=== PATIENT | male | born 1980 | race Caucasian/White ===

== ENCOUNTER 2024-07-30 20:08 | Emergency (ER) | payer OTHER ==
[~2024-07-30] VITALS: Ht 180.3 cm; Wt 74.8 kg
[~2024-07-30 20:08] MED LIST: NO MEDICATIONS
[2024-07-30 20:41] LABS: CARBON DIOXIDE 21 mmol/L (21-32); UREA NITROGEN, BLOOD 24 mg/dL (7-18)
[2024-07-30 21:07] LABS: BASOPHILS # (AUTO) 0.1 K/uL (0.0-0.2); BASOPHILS % (AUTO) 0.6 % (0.0-2.0); EOSINOPHILS # (AUTO) 0.2 K/uL (0.0-0.7); EOSINOPHILS % (AUTO) 2.3 % (0.0-6.0); HEMATOCRIT 49 % (39-51); HEMOGLOBIN 16.7 g/dL (13.5-17.5); LYMPHOCYTES # (AUTO) 3.6 K/uL (0.8-4.8); LYMPHOCYTES % (AUTO) 42.4 % (20.0-44.0); MEAN CORPUSCULAR HEMOGLOBIN 28 PG (26.0-33.0); MEAN CORPUSCULAR HGB CONC 34 g/dl (31.0-36.0); MEAN CORPUSCULAR VOLUME 83 fL (80-96); MONOCYTES # (AUTO) 0.5 K/uL (0.1-1.30); MONOCYTES % (AUTO) 6.6 % (2.0-12.0); NEUTROPHILS % (AUTO) 48.1 % (43.0-81.0); PLATELET COUNT (AUTO) 163 K/uL (150-450); RED BLOOD CELL COUNT(AUTO) 5.91 MIL/uL (4.5-6.0); RED CELL DISTRIBUTION WIDTH 13.2 % (11.5-15.0); WHITE BLOOD COUNT (AUTO) 8.4 K/uL (4.3-11.0)
[2024-07-30] MEDS: HALOPERIDOL LACTATE INJ 5 MG/ML VIAL IM ONE (21:08)
[2024-07-30] MEDS: ASPIRIN EC 325 MG TABLET.DR PO ONE (21:08)
[2024-07-30] MEDS: POTASSIUM CHLORIDE 20 MEQ TAB.PRT.SR PO ONE (21:08)
[2024-07-30 21:19] VITALS: BP 110/81; TEMP 98.5; O2SAT 99
[2024-07-30 21:21] LABS: ALCOHOL, BLOOD < 3 mg/dL (0-10)
[2024-07-30 21:30] LABS: CHLORIDE 101 mmol/L (98-107); POTASSIUM 3.5 mmol/L (3.5-5.1); SODIUM SERUM 138 mmol/L (136-145)
[2024-07-30 21:31] LABS: CALCIUM, SERUM 9.4 mg/dL (8.5-10.1); GLUCOSE 131 mg/dL (74-106)
[2024-07-30 21:32] LABS: ALKALINE PHOSPHATASE 60 U/L (46-116); ASPARTATE AMINOTRANSFERASE 36 U/L (15-37); BILIRUBIN,DIRECT 0.1 mg/dL (0.0-0.2); BILIRUBIN,TOTAL 0.3 mg/dL (0.2-1.0)
[2024-07-30 21:33] LABS: ALANINE AMINOTRANSFERASE 36 U/L (12-78); ALBUMIN 4.3 g/dL (3.4-5.0); NT-PRO BNP 93 pg/mL (0-125); TOTAL PROTEIN, SERUM 7.5 g/dL (6.4-8.2)
[2024-07-30] MEDS: IV PREMIX D5 1/2NS + KCL 1,000 ML IV ONE (22:16)
== END 2024-07-30 22:24 | disposition left against medical advice (07) ==
LOC: ER 20:14
DX: I21.4 Non-ST elevation (NSTEMI) myocardial infarction (principal); R00.2 Palpitations; E86.0 Dehydration; R11.10 Vomiting, unspecified; Z60.2 Problems related to living alone; Z95.810 Presence of automatic (implantable) cardiac defibrillator
CPT/HCPCS: 99285; 96372; 93005; 71045; 85025; 80048; 80076; 85378; 36415; 84443; 84484 ×2; 83880; 80320; J1630; G0480